=== PATIENT | male | born 1950 | race Caucasian/White ===

== ENCOUNTER → 2017-02-24 | Outpatient (CLI) | payer OTHER ==
--- NOTE | 2017-02-24 10:35 | PCVCIMAG ---
EXAM: AORTOILIAC DUPLEX INDICATION: Peripheral arterial disease FINDINGS: AORTA: Suprarenal aorta measures maximum diameter of 2.5 cm. There is a fusiform infrarenal aortic aneurysm. The infrarenal aorta measures maximum diameter of 3.4 x 3.5 cm. No aortic stenosis. RIGHT COMMON ILIAC ARTERY: Maximum diameter is 1.7 cm. No significant stenosis. RIGHT EXTERNAL ILIAC ARTERY: No significant stenosis. LEFT COMMON ILIAC ARTERY: Maximum diameter is 1.7 cm. No significant stenosis. LEFT EXTERNAL ILIAC ARTERY: No significant stenosis. IMPRESSION: 3.5 cm abdominal aortic aneurysm compares to 3.3 cm on prior study. LOC:[id number]
--- NOTE | 2017-02-24 13:11 | PCVCIMAG ---
APPROVED REPORT Study performed: 02/24/2017 09:50:01 EXAM: Comprehensive 2D, Doppler, and color-flow Echocardiogram Patient Location: Echo lab Status: routine BSA: 2.36 HR: 71 bpmBP: 140/82 mmHg Rhythm: Atrial Fibrillation Other Information Study Quality: Adequate Indications Atrial Fibrillation Aortic Valve Replacement #33 [employer] 2D Dimensions LVEF(%): 41.05 (>50%) IVSd: 16.26 (7-11mm)LVOT Diam: 33.24 (18-24mm) LVDd: 51.08 mm PWd: 14.54 (7-11mm) LVDs: 40.77 (25-40mm) Left Atrium: 58.10 (27-40mm) Aortic Root: 36.47 mm LV Single Plane 4CH: 43.64 % LV Single Plane 2CH: 52.75 %Mckeon's LVEF: 48.19 % Biplane EF: 49.5 % Volumes Left Atrial Volume (Systole) Single Plane 4CH: 183.89 mLSingle Plane 2CH: 173.40 mL LA ESV Index: 76.00 mL/m2 Aortic Valve AoV Peak Frank.: 1.72 m/s AO Peak Gr.: 11.82 mmHgLVOT Max P.62 mmHg AO Mean Gr.: 5.81 mmHgLVOT Mean P.28 mmHg AO V2 Mean: 1.11 m/sLVOT Max V: 1.07 m/s AO V2 VTI: 30.65 cmLVOT Mean V: 0.69 m/s ADY (VTI): 5.92 [id number] V1 VTI: 20.94 cm ADY Vmax: 5.39 cm2 SV (LVOT): 181.57 mL Pulmonary Valve PV Peak Frank.: 0.69 m/sPV Peak Gr.: 1.90 mmHg Tricuspid Valve TR Peak Frank.: 2.32 m/s TR Peak Gr.: 21.55 mmHg Left Ventricle The left ventricle is normal size. There is normal LV segmental wall motion. Moderate concentric left ventricular hypertrophy. Left ventricular systolic function is borderline normal. LVEF is 50%. This study is not technically sufficient to allow evaluation of the LV diastolic function due to atrial fibrillation. Right Ventricle The right ventricle is normal size. The right ventricular systolic function is normal. Atria Left atrium is severely dilated. Right atrium is severely dilated. Aortic Valve Normally functioning #33 [facility] valve in aortic position. There is a #33 bi-leaflet ([employer]) mechanical aortic valve prosthesis. The prosthetic aortic valve appears normal. No aortic regurgitation is present. There is no evidence of aortic valve stenosis. Calculated aortic valve area is 5.4 cm2 with maximum pressure gradient of 12 mmHg and mean pressure gradient of 6 mmHg. Mitral Valve The mitral valve is normal in structure. Mild mitral regurgitation. No evidence of mitral valve stenosis. Tricuspid Valve The tricuspid valve is normal in structure. Mild tricuspid regurgitation with PAP of 30 mmHg. Pulmonic Valve The pulmonary valve is normal in structure. There is no pulmonic valvular regurgitation. Great Vessels The aortic root is normal in size. IVC is normal in size and collapses with >50% inspiration Pericardium There is no pericardial effusion. <Conclusion> The left ventricle is normal size. Moderate concentric left ventricular hypertrophy. LVEF is 50%. This study is not technically sufficient to allow evaluation of the LV diastolic function due to atrial fibrillation. Left atrium is severely dilated. Right atrium is severely dilated. Normally functioning #33 [facility] [place] valve in aortic position. There is no evidence of aortic valve stenosis. Calculated aortic valve area is 5.4 cm2 with maximum pressure gradient of 12 mmHg and mean pressure gradient of 6 mmHg. Mild mitral regurgitation. Mild tricuspid regurgitation with PAP of 30 mmHg. There is no pericardial effusion.
== END | disposition home or self-care (01) ==
LOC: PCVCIMAG 09:14
PROVIDERS: ATTEND Internal Medicine Cardiovascular Disease
DX: I71.4 Abdominal aortic aneurysm, without rupture (principal); I08.1 Rheumatic disorders of both mitral and tricuspid valves; I73.9 Peripheral vascular disease, unspecified; I10 Essential (primary) hypertension; E78.5 Hyperlipidemia, unspecified; I63.9 Cerebral infarction, unspecified; I48.91 Unspecified atrial fibrillation; Z95.2 Presence of prosthetic heart valve
CPT/HCPCS: 93306; 93978

== ENCOUNTER → 2017-09-29 | Outpatient (CLI) | payer OTHER | END | disposition home or self-care (01) | LOC: PCVCIMAG 09:55 | DX: I08.1 Rheumatic disorders of both mitral and tricuspid valves (principal); I48.91 Unspecified atrial fibrillation; I10 Essential (primary) hypertension; Z95.2 Presence of prosthetic heart valve | CPT/HCPCS: 93306; 93975; 93978 ==

== ENCOUNTER → 2018-05-17 | Outpatient (CLI) | payer OTHER ==
--- NOTE | 2018-05-17 16:58 | PCVCIMAG ---
EXAM: MESENTERIC ARTERIAL DUPLEX INDICATION: Mesenteric Atherosclerosis. FINDINGS: Celiac Rheems: Subtotal or total chronic occlusion. Superior Mesenteric Artery: No flow limiting stenosis. No branch vessel stenosis. Inferior Mesenteric Artery: No flow limiting stenosis. No branch vessel stenosis. Mesenteric veins are patent where seen. 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 No flow limiting stenosis superior or inferior mesenteric arteries. No change since September 2017. LOC:[id number]
--- NOTE | 2018-05-17 17:01 | PCVCIMAG ---
EXAM: AORTOILIAC DUPLEX INDICATION: Abdominal aortic aneurysm. FINDINGS: AORTA: Suprarenal aorta measures maximum diameter of 2.9 cm. There is a fusiform infrarenal aortic aneurysm. The infrarenal aorta measures maximum diameter of 3.6 x 3.7 cm. No aortic stenosis. RIGHT COMMON ILIAC ARTERY: Maximum diameter is 1.7 cm. No significant stenosis. RIGHT EXTERNAL ILIAC ARTERY: No significant stenosis. LEFT COMMON ILIAC ARTERY: Maximum diameter is 1.7 cm. No significant stenosis. LEFT EXTERNAL ILIAC ARTERY: No significant stenosis. IMPRESSION: 3.7 cm infrarenal abdominal aortic aneurysm is unchanged since September 2017 study. LOC:[id number]
--- NOTE | 2018-05-17 17:04 | PCVCIMAG ---
EXAM: ABDOMINAL ULTRASOUND COMPLETE INDICATION: Abdominal pain FINDINGS: Gallbladder: No gallstones. No wall thickening or abnormal pericholecystic fluid. Liver: Normal in size measuring 17.1 cm in length. 1.4 x 1.6 x 1.9 cm benign cyst in the liver near the gallbladder fossa. Bile ducts: No intra or extra hepatic bile duct dilatation. The common bile duct measures 4.8 mm. Pancreas: Not well seen due to overlying bowel gas. Spleen: Normal in size measuring 9.7 cm in greatest dimension. No focal masses. Right kidney: No hydronephrosis. Length measures 13.4 cm. Left kidney: No hydronephrosis. Length measures 13.5 cm. Inferior vena cava: Normal in size where seen. Aorta: Normal in caliber where seen. IMPRESSION: No evidence of cholelithiasis. Mild increased echogenicity throughout the liver most compatible with diffuse fatty infiltration. 1.9 cm benign hepatic cyst. LOC:[id number]
== END | disposition home or self-care (01) ==
LOC: PCVCIMAG 13:00
PROVIDERS: ATTEND Internal Medicine Cardiovascular Disease
DX: R10.9 Unspecified abdominal pain (principal); I73.9 Peripheral vascular disease, unspecified; I71.4 Abdominal aortic aneurysm, without rupture; E78.00 Pure hypercholesterolemia, unspecified; K55.1 Chronic vascular disorders of intestine
CPT/HCPCS: 76700; 93975; 93978

== ENCOUNTER → 2018-12-18 | Outpatient (CLI) | payer BC, OTHER ==
--- NOTE | 2018-12-18 14:10 | PCVCIMAG ---
APPROVED REPORT Study performed: 12/18/2018 09:52:07 EXAM: Comprehensive 2D, Doppler, and color-flow Echocardiogram Patient Location: Echo lab Status: routine BSA: 2.41 HR: 65 bpmBP: 134/82 mmHg Rhythm: Atrial Fibrillation Other Information Study Quality: Adequate Indications Atrial Fibrillation CAD #33 [employer] mechanical aortic valve 2D Dimensions IVSd: 15.13 (7-11mm)LVOT Diam: 33.24 (18-24mm) LVDd: 46.99 mm PWd: 13.95 (7-11mm)Ascending Ao: 37.85 (22-36mm) LVDs: 42.07 (25-40mm) Left Atrium: 52.22 (27-40mm) Aortic Root: 38.27 mm LV Single Plane 4CH: 42.93 % LV Single Plane 2CH: 49.25 % Biplane EF: 46.6 % Volumes Left Atrial Volume (Systole) Single Plane 4CH: 200.44 mLSingle Plane 2CH: 237.14 mL LA ESV Index: 96.00 mL/m2 Aortic Valve AoV Peak Frank.: 1.79 m/s AO Peak Gr.: 12.85 mmHgLVOT Max P.41 mmHg AO Mean Gr.: 5.90 mmHgLVOT Mean P.20 mmHg AO V2 Mean: 1.10 m/sLVOT Max V: 0.78 m/s AO V2 VTI: 33.84 cmLVOT Mean V: 0.51 m/s ADY (VTI): 3.99 [id number] V1 VTI: 15.55 cm ADY Vmax: 3.77 cm2 SV (LVOT): 134.86 mL Mitral Valve E/A Ratio: 1.2 MV Decel. Time: 231.82 ms MV E Max Frank.: 0.66 m/s MV A Frank.: 0.53 m/s IVRT: 148.79 ms Pulmonary Valve PV Peak Frank.: 0.83 m/sPV Peak Gr.: 2.78 mmHg Pulmonary Vein P Vein S: 0.26 m/sP Vein A: 0.28 m/s P Vein D: 0.34 m/sP Vein A Dur.: 114.2 msec P Vein S/D Ratio: 0.76 Tricuspid Valve TR Peak Frank.: 2.52 m/s TR Peak Gr.: 25.40 mmHg Left Ventricle The left ventricle is normal size. There is normal LV segmental wall motion. Moderate concentric left ventricular hypertrophy. Left ventricular systolic function is mildly decreased. LVEF is 45-50%. This study is not technically sufficient to allow evaluation of the LV diastolic function due to atrial fibrillation. Right Ventricle The right ventricle is normal size. The right ventricular systolic function is normal. Atria Left atrium is markedly, severely dilated. Right atrium is severely dilated. Aortic Valve Normally functioning #33 [facility] mechanical valve in the aortic position. No aortic regurgitation is present. There is no aortic valvular stenosis. Calculated aortic valve area is 1.8 cm2 with maximum pressure gradient of 13 mmHg and mean pressure gradient of 6 mmHg. Mitral Valve The mitral valve is normal in structure. Trace mitral regurgitation. No evidence of mitral valve stenosis. Tricuspid Valve The tricuspid valve is normal in structure. Mild tricuspid regurgitation with PAP of 32 mmHg. Pulmonic Valve The pulmonary valve is normal in structure. There is no pulmonic valvular regurgitation. Great Vessels The aortic root is normal in size. The ascending aorta is borderline dilated to 3.8 cm. IVC is normal in size and collapses >50% with inspiration. Pericardium There is no pericardial effusion. There is no pleural effusion. <Conclusion> The left ventricle is normal size. Moderate concentric left ventricular hypertrophy. LVEF is 45-50%. This study is not technically sufficient to allow evaluation of the LV diastolic function due to atrial fibrillation. The right ventricle is normal size. Left atrium is markedly, severely dilated. Right atrium is severely dilated. Normally functioning #33 [facility] mechanical valve in the aortic position. There is no aortic valvular stenosis. Calculated aortic valve area is 1.8 cm2 with maximum pressure gradient of 13 mmHg and mean pressure gradient of 6 mmHg. Trace mitral regurgitation. Mild tricuspid regurgitation with PAP of 32 mmHg. The aortic root is normal in size. There is no pericardial effusion.
== END | disposition home or self-care (01) ==
LOC: PCVCIMAG 09:50
PROVIDERS: ATTEND Internal Medicine Cardiovascular Disease
DX: I07.1 Rheumatic tricuspid insufficiency (principal); I10 Essential (primary) hypertension; I48.91 Unspecified atrial fibrillation; Z95.2 Presence of prosthetic heart valve
CPT/HCPCS: 93306